=== PATIENT | male | born 1980 | race American Indian/Alaskan Native ===

== ENCOUNTER 2016-10-05 12:30 | Emergency (ER) | payer BC, OTHER ==
[2016-10-05] MEDS ORDERED: TYLENOL ONE (13:49)
[2016-10-05] MEDS ORDERED: ZOFRAN ODT PO ONE (13:50)
[2016-10-05] MEDS ORDERED: TYLENOL PO ONE (13:50)
--- NOTE | 2016-10-05 17:19 | Emergency Department Report ---
- General Chief Complaint: Fever Stated Complaint: N/V, HEADACHE,WEAKNESS Time Seen by Provider: 10/05/16 17:01 Source: patient Mode of arrival: Ambulatory Limitations: No Limitations - History of Present Illness Initial Comments: 35-year-old male past medical history none presents with complaint of 3-4 days of abdominal pain nausea sore throat and body aches, anterior sinus headache. States he [place] at [place] and occasionally inhales noxious fumes, primarily complaining of pressure behind his eyes and headache which he said has been gradually and intermittently worse over the last several days. MD Complaint: fever, sore throat, rhinorrhea, nasal congestion, sinus pain Severity: moderate Quality: aching Consistency: constant Improves With: nothing Context: sick contacts Associated Symptoms: fever, cough - Related Data Home Medications Medication Instructions Recorded Confirmed Last Taken Fluticasone/Salmeterol [Advair 07/25/13 07/25/13 08/01/13 Diskus 100-50 mcg] Previous Rx's Medication Instructions Recorded Last Taken Type Amoxicillin/K Clav Tab [Augmentin 1 tab PO Q12HR #14 tab 10/05/16 Unknown Rx 875 mg] Fluticasone [Flonase] 1 spray NS QDAY PRN #1 bottle 10/05/16 Unknown Rx Naproxen [Naproxen TAB] 250 mg PO BID PRN #30 tablet 10/05/16 Unknown Rx Ondansetron [Zofran Odt] 4 mg PO Q8H PRN #20 tab.rapdis 10/05/16 Unknown Rx Allergies Allergy/AdvReac Type Severity Reaction Status Date / Time No Known Allergies Allergy Verified 08/01/13 13:38 ED Review of Systems ROS: Stated complaint: N/V, HEADACHE,WEAKNESS Other details as noted in HPI Constitutional: denies: chills, fever Eyes: denies: eye pain, eye discharge, vision change ENT: congestion. denies: ear pain, throat pain Respiratory: denies: cough, shortness of breath, wheezing Cardiovascular: denies: chest pain, palpitations Endocrine: no symptoms reported Gastrointestinal: abdominal pain, nausea, vomiting. denies: diarrhea Genitourinary: denies: urgency, dysuria Musculoskeletal: denies: back pain, joint swelling, arthralgia Skin: denies: rash, lesions Neurological: denies: headache, weakness, paresthesias Psychiatric: denies: anxiety, depression Hematological/Lymphatic: denies: easy bleeding, easy bruising ED Past Medical Hx - Past Medical History Hx Asthma: Yes - Social History Smoking Status: Never Smoker Substance Use Type: None - Medications Home Medications: Home Medications Medication Instructions Recorded Confirmed Last Taken Type Fluticasone/Salmeterol [Advair 07/25/13 07/25/13 08/01/13 History Diskus 100-50 mcg] Amoxicillin/K Clav Tab [Augmentin 1 tab PO Q12HR #14 tab 10/05/16 Unknown Rx 875 mg] Fluticasone [Flonase] 1 spray NS QDAY PRN #1 bottle 10/05/16 Unknown Rx Naproxen [Naproxen TAB] 250 mg PO BID PRN #30 tablet 10/05/16 Unknown Rx Ondansetron [Zofran Odt] 4 mg PO Q8H PRN #20 tab.rapdis 10/05/16 Unknown Rx ED Physical Exam - General Limitations: No Limitations General appearance: alert, in no apparent distress - Head Head exam: Present: atraumatic, normocephalic - Eye Eye exam: Present: normal appearance, PERRL, EOMI - ENT ENT exam: Present: mucous membranes moist - Neck Neck exam: Present: normal inspection - Respiratory Respiratory exam: Present: normal lung sounds bilaterally. Absent: respiratory distress - Cardiovascular Cardiovascular Exam: Present: regular rate, normal rhythm. Absent: systolic murmur, diastolic murmur, rubs, gallop - GI/Abdominal GI/Abdominal exam: Present: soft, normal bowel sounds - Rectal Rectal exam: Present: deferred - Extremities Exam Extremities exam: Present: normal inspection, full ROM - Back Exam Back exam: Present: normal inspection, full ROM - Neurological Exam Neurological exam: Present: alert, oriented X3, CN II-XII intact, normal gait - Psychiatric Psychiatric exam: Present: normal affect, normal mood - Skin Skin exam: Present: warm, dry, intact, normal color. Absent: rash ED Course Vital Signs 10/05/16 10/05/16 13:47 13:56 Temperature 102.4 F H Pulse Rate 86 Respiratory 18 18 Rate Blood Pressure 125/77 O2 Sat by Pulse 100 Oximetry ED Medical Decision Making - Lab Data Result diagrams: 10/05/16 17:51 10/05/16 17:51 - Medical Decision Making A/P: Viral syndrome, possible sinusitis 1-labs within normal limits, influenza negative, bloodwork WNL 2-CT head wnl 3-will tx pt empirically for sinusitis, pt to f/u with his PMD tomorrow Critical care attestation.: If time is entered above; I have spent that time in minutes in the direct care of this critically ill patient, excluding procedure time. ED Disposition Clinical Impression: Nausea Headache Qualifiers: Headache type: tension-type Headache chronicity pattern: acute headache Sinusitis, acute Qualifiers: Sinusitis location: frontal Recurrence: non-recurrent Qualified Code(s): J01.10 - Acute frontal sinusitis, unspecified Disposition: DISCHARGED TO HOME OR SELFCARE Is pt being admited?: No Does the pt Need Aspirin: No Condition: Stable Instructions: Sinusitis (ED), Viral Syndrome (ED), Acute Nausea and Vomiting ( ED) Prescriptions: Amoxicillin/K Clav Tab [Augmentin 875 mg] 1 tab PO Q12HR #14 tab Fluticasone [Flonase] 1 spray NS QDAY PRN #1 bottle PRN Reason: Congestion Naproxen [Naproxen TAB] 250 mg PO BID PRN #30 tablet PRN Reason: Headache Ondansetron [Zofran Odt] 4 mg PO Q8H PRN #20 tab.rapdis PRN Reason: Nausea Referrals: PRIMARY CARE, [Primary Care Provider] - 3-5 Days NORBERT TOSCANO MD [Staff Physician] - 3-5 Days [facility] [Outside] - 3-5 Days Forms: Work/School Release Form(ED) Time of Disposition: 21:24
[2016-10-05] MEDS ORDERED: MOTRIN PO ONE (17:41)
[2016-10-05] MEDS ORDERED: REGLAN PO ONE (17:41)
[2016-10-05] MEDS ORDERED: PEPCID PO ONE (17:41)
[2016-10-05 18:12] LABS: Hematocrit 44.7 % (35.5-45.6); Hemoglobin 14.4 gm/dl (11.8-15.2); Mean Corpuscular HGB Conc 32 % (32-34); Mean Corpuscular Hemoglobin 28 pg (28-32); Mean Corpuscular Volume 86 fl (84-94); Platelet Count 164 K/mm3 (140-440); Red Cell Distribution Width 13.8 % (13.2-15.2); White Blood Count 3.5 K/mm3 (4.5-11.0)
[2016-10-05 18:27] LABS: Anion Gap 16 mmol/L; BUN/Creatinine Ratio 6.36; Blood Urea Nitrogen 7 mg/dL (9-20); Calcium 8.8 mg/dL (8.4-10.2); Carbon Dioxide 29 mmol/L (22-30); Chloride 96.2 mmol/L (98-107); Glucose 93 mg/dL (75-100); Potassium 4.4 mmol/L (3.6-5.0); Sodium 137 mmol/L (137-145)
[2016-10-05 18:29] LABS: Alanine Aminotransferase 22 units/L (7-56); Albumin 4.3 g/dL (3.9-5); Albumin/Globulin Ratio 1.3 %; Alkaline Phosphatase 40 units/L (35-129); Bilirubin,Total 0.8 mg/dL (0.1-1.2); Magnesium 1.8 mg/dL (1.7-2.3); Total Protein 7.5 g/dL (6.3-8.2)
[2016-10-05 18:31] LABS: Bilirubin,Direct < 0.2 mg/dL (0-0.2); Bilirubin,Indirect 0.6 mg/dL
[2016-10-05 18:58] LABS: Basophils % (Manual) 0 % (0.0-1.8); Blastocytes % (Manual) 0 %; Eosinophils % (Manual) 0 % (0.0-4.3)
[2016-10-05 19:00] LABS: Anisocytosis 2+; Diff Status Complete
[2016-10-05 19:28] LABS: Amylase 94 units/L (27-131); Lipase 26 units/L (13-60)
--- NOTE | 2016-10-05 21:18 | Cat Scan Report ---
FINAL REPORT PROCEDURE: CT HEAD/BRAIN WO CON TECHNIQUE: Computerized tomography of the head was performed without contrast material. HISTORY: worsening headache COMPARISON: No prior studies are available for comparison. FINDINGS: Visualized portions of the paranasal sinuses and mastoid air cells are clear. No calvarial fracture is seen. Cerebral ventricles are normal in size. No acute intracranial hemorrhage or mass effect is seen. No CVA is seen. IMPRESSION: No abnormalities are seen.
[2016-10-05 21:41] VITALS: BP 119/83
== END 2016-10-05 21:40 | disposition home or self-care (01) ==
LOC: ED 12:30
DX: J01.10 Acute frontal sinusitis, unspecified (principal); G44.209 Tension-type headache, unspecified, not intractable; R11.0 Nausea; J45.909 Unspecified asthma, uncomplicated
CPT/HCPCS: 36415; 70450; 80048; 80074; 82150; 82550; 83690; 83735; 85007; 85025; 87400; Q0162

== ENCOUNTER 2020-07-28 08:14 | Day surgery (SDC) | payer BC ==
[~2020-07-28 08:14] MED LIST: LACTATED RINGERS 1,000 ML IV SCH; MIDAZOLAM 2 MG/2 ML INJ IV NR
[2020-07-28] MEDS ORDERED: ONDANSETRON 4 MG/2 ML INJ IV PRN (09:19)
--- NOTE | 2020-07-28 09:19 | Anesthesia Consultation ---
Anesthesia Consult and Med Hx Date of service: 07/28/20 - Airway Anesthetic Teeth Evaluation: Good ROM Head & Neck: Adequate Mental/Hyoid Distance: Adequate Mallampati Class: Class II Intubation Access Assessment: Probably Good - Pulmonary Exam CTA: Yes - Cardiac Exam Cardiac Exam: RRR - Pre-Operative Health Status ASA Pre-Surgery Classification: ASA2 Proposed Anesthetic Plan: General - Pulmonary Hx Smoking: No Hx Asthma: Yes (last inhaler use 2 wks ago) Hx Respiratory Symptoms: Yes (URI 2/2 COVID19 05/26; symptoms now resolved) SOB: No Home Oxygen Therapy: No Hx Sleep Apnea: No (SRIDHAR PRE SCREEN LOW RISK) - Cardiovascular System Hx Hypertension: No Hx Heart Attack/AMI: No - Central Nervous System CVA: No - Gastrointestinal Hx Gastroesophageal Reflux Disease: No - Endocrine Hx Renal Disease: No Hx Liver Disease: No Hx Insulin Dependent Diabetes: No Hx Non-Insulin Dependent Diabetes: No Hx Thyroid Disease: No - Other Systems Hx Obesity: No - Additional Comments Anesthesia Medical History Comments: No hx anesthetic complications. Patient had neg outpatient rapid COVID test 07/26/20.
--- NOTE | 2020-07-28 09:19 | Anesthesia Day of Surgery ---
Anesthesia Day of Surgery - Day of Surgery Patient Examined: Yes Patient H&P Reviewed: Yes Patient is NPO: Yes
[2020-07-28] MEDS ORDERED: ceFAZolin/STERILE WATER 2 GM/20 ML SYRINGE IV NR (11:37)
[2020-07-28] MEDS ORDERED: PHENYLEPHRINE/NS 1,000 MCG/10 ML SYRINGE (OR USE) IV ONE (12:31)
[2020-07-28] MEDS ORDERED: SUCCINYLCHOLINE CHLORIDE 200 MG/10 ML INJ MDV ONE (12:31)
[2020-07-28] MEDS ORDERED: ONDANSETRON 4 MG/2 ML INJ ONE (12:31)
[2020-07-28] MEDS ORDERED: LIDOCAINE MPF (2%) 20 MG/1 ML VIAL 5 ML ONE (12:31)
[2020-07-28] MEDS ORDERED: GLYCOPYRROLATE 0.4 MG/2 ML INJ ONE (12:31)
[2020-07-28] MEDS ORDERED: fentaNYL 100 MCG/2 ML INJ ONE (12:31)
[2020-07-28] MEDS ORDERED: dexAMETHasone 20 MG/5 ML VIAL ONE (12:31)
[2020-07-28] MEDS ORDERED: propofoL 200 MG/20 ML VIAL IV ONE (12:32)
[2020-07-28] MEDS ORDERED: WATER FOR IRRIG STERILE 2000 ML IR ONE (13:07)
--- NOTE | 2020-07-28 13:11 | Short Stay Summary ---
Short Stay Documentation - History H&P: obtained from office - Allergies and Medications Current Medications: Allergies No Known Allergies Allergy (Verified 08/01/13 13:38) Home Medications Medication Instructions Recorded Confirmed Last Taken Type Budesonide/Formoterol Fumarate 2 puff IH PRN PRN 07/22/20 07/28/20 07/21/20 08:00 History [Symbicort 160-4.5 Mcg Inhaler] Active Medications Cefazolin Sodium (Ancef/Sterile Water 2 Gm/20 Ml) 2 gm IV PREOP NR Stop: 07/28/20 23:59 Fentanyl (Sublimaze) 50 mcg IV Q5MIN PRN PRN Reason: Pain , Severe (7-10) Lactated Ringer's (Lactated Ringers) 1,000 mls @ 100 mls/hr IV DIRECT CALEB Stop: 07/28/20 23:59 Last Admin: 07/28/20 09:15 Dose: 100 mls/hr Documented by: Midazolam HCl (Versed) 2 mg IV PREOP NR Stop: 07/28/20 23:59 Last Admin: 07/28/20 11:40 Dose: 2 mg Documented by: Ondansetron HCl (Zofran) 4 mg IV ONCE PRN PRN Reason: Nausea And Vomiting - Brief post op/procedure progress note Date of procedure: 07/28/20 Pre-op diagnosis: pelvic pain Post-op diagnosis: same Procedure: cysto, hydrodistention (1000cc), pyelograms Anesthesia: GETA Surgeon: BEVERLY CHRIS Estimated blood loss: none Specimen disposition: to lab (culture) Condition: stable - Hospital course Hospital course: estefania maher norco on chart - Disposition Condition at discharge: Stable Disposition: DC-01 TO HOME OR SELFCARE Short Stay Discharge Plan Follow up with: THOMAS RODRÍGUEZ MD [Primary Care Provider] - 7 Days
[2020-07-28] MEDS ORDERED: HYDROcodone/ACETAMINOPHEN 5-325 MG TAB PO PRN (13:25)
--- NOTE | 2020-07-28 13:27 | Operative Report ---
PREOPERATIVE DIAGNOSES: Pelvic and perineal pain. POSTOPERATIVE DIAGNOSES: Pelvic and perineal pain. PROCEDURE: Cystoscopy, bilateral retrograde pyelograms, hydrodistention (1000 mL). SURGEON: Wilfrid Amos MD ANESTHESIA: General. ESTIMATED BLOOD LOSS: Minimal. FLUIDS: Crystalloid. COMPLICATIONS: No complications. INDICATIONS: This patient is a 39-year-old gentleman who has been followed for described as interstitial cystitis, dating back approximately 10 years. His pain medication requirements has increased prompting reevaluation. Early this year, he gave a history of intermittent groin, foot pain suggesting a radiculopathy. Denies back pain. CT of abdomen and pelvis; normal urinary tracts, saw a lesion on his liver. The patient states he was seen by Dr. Brendan Lopes; no further evaluation was needed. He presents now for intervention. DESCRIPTION OF PROCEDURE: The patient was taken to the operative suite, placed in a supine position. After adequate general anesthesia, placed in a dorsal lithotomy position, prepped and draped in a sterile fashion. Pancystourethroscopy was performed with 22-Serbian Storz cystoscope, no urethral abnormalities. Prostate nonobstructing. Bladder, no tumors or stones were noted. Both ureteral orifices in normal position. Bilateral retrograde pyelograms were obtained with an 8-Serbian Vincent catheter and 8 mL of contrast. No filling defects or obstruction. Hydrodistention was performed, 1000 mL bladder capacity was noted. Reevaluation of his bladder did not find any significant hemorrhage or Hunner's ulcers. Bladder was drained. Rectal exam was benign. Urine culture was obtained. He was extubated and taken to recovery room. He will go home on Bactrim, Motrin and Unity. JOB# [id number] [facility]
[2020-07-28] MEDS: fentaNYL 100 MCG/2 ML INJ IV PRN ×2 (13:40→13:50)
[2020-07-28 14:04] VITALS: BP 130/87
--- NOTE | 2020-07-28 15:45 | Post Anesthesia Evaluation ---
- Post Anesthesia Evaluation Patient Participated: Yes Airway Patent: Yes Stable Respiratory Function: Yes Nausea/Vomiting: No Temp > 96.8F: Yes Pain Manageable: Yes Adequeate Hydration: Yes Anesthesia Complications: No
--- NOTE | 2020-07-28 16:23 | Fluoroscopy Report ---
FLUOROSCOPY RETROGRADE UROGRAPHY HISTORY: Pelvic pain FINDINGS: Fluoroscopy was provided by radiology during retrograde urography by the urologist. There i s normal filling of both renal collecting systems. No filling defect or abnormal dilatation is identi fied. IMPRESSION: Unremarkable bilateral retrograde pyelograms Fluoroscopy time: 12 seconds Fluoroscopic images: 17 Signer Name: Bruno Arias Jr, MD Signed: 07/28/2020 4:19 PM Workstation Name: [id number]
== END 2020-07-28 08:15 | disposition home or self-care (01) ==
LOC: OR 08:14
PROVIDERS: ATTEND Urology
DX: R10.2 Pelvic and perineal pain (principal); J45.909 Unspecified asthma, uncomplicated; Z79.899 Other long term (current) drug therapy; Z87.440 Personal history of urinary (tract) infections; Z98.890 Other specified postprocedural states
CPT/HCPCS: 52005; 74420; 87086; A4217; C1758; J0330; J1100; J2250; J2370; J2405; J2704; J3010; J7120; Q9967